=== PATIENT | female | born 1965 | race Asian ===

== ENCOUNTER 2019-02-05 22:52 | Emergency (ER) | payer BC ==
[~2019-02-05] VITALS: Ht 157.5 cm; Wt 113.4 kg
[~2019-02-05 22:52] MED LIST: ADIPEX-P37.5 M1 OR; BENICAR HCT1 TA1 PO; CIPRO500 MG OR; IBUP800T30 PO
[2019-02-05 23:09] VITALS: TEMP 98.8
[2019-02-05 23:52] LABS: PLATELET COUNT 224 K/uL (152-353)
[2019-02-06 00:07] LABS: POTASSIUM 3.8 mmol/L (3.6-5.2)
[2019-02-06 00:13] LABS: PARTIAL THROMBOPLASTIN TIME 23.7 SECONDS (24.5-33.6)
[2019-02-06 01:00] VITALS: BP 170/73
== END 2019-02-06 01:05 | disposition home or self-care (01) ==
LOC: ED 22:52
PROVIDERS: Hospitalist
DX: M17.12 Unilateral primary osteoarthritis, left knee (principal); M25.562 Pain in left knee
CPT/HCPCS: 36415; 80048; 85027; 85379; 85610; 85730; 96372; 99284; J1885; J2930

== ENCOUNTER 2019-02-12 10:07 | Outpatient (CLI) | payer BC | END 2019-02-12 22:53 | disposition home or self-care (01) | LOC: RAD 10:07 | DX: R60.0 Localized edema (principal); M25.562 Pain in left knee ==

== ENCOUNTER 2019-03-29 10:39 | Outpatient (CLI) | payer BC | END 2019-03-29 21:29 | disposition home or self-care (01) | LOC: RAD 10:39 | DX: M06.4 Inflammatory polyarthropathy (principal); M25.551 Pain in right hip; M25.552 Pain in left hip; M25.561 Pain in right knee; M25.562 Pain in left knee; M54.5 Low back pain ==

== ENCOUNTER 2020-06-17 09:56 | Outpatient (CLI) | payer BC ==
[2020-06-17 11:22] LABS: PLATELET COUNT 240 K/uL (152-353)
[2020-06-17 11:23] LABS: POTASSIUM 3.3 mmol/L (3.6-5.2)
== END 2020-06-17 21:40 | disposition home or self-care (01) ==
LOC: RAD 09:56
PROVIDERS: ATTEND Nurse Practitioner Family
DX: R05 Cough (principal); R42 Dizziness and giddiness; R53.83 Other fatigue; R52 Pain, unspecified
CPT/HCPCS: 36415; 80053; 81000; 85027; 87086; 87088; 93005

== ENCOUNTER 2021-02-16 19:01 | Emergency (ER) | payer BC ==
[~2021-02-16] VITALS: Ht 160 cm; Wt 124.7 kg
[2021-02-16 22:45] VITALS: BP 185/68; TEMP 98.5
== END 2021-02-16 22:47 | disposition home or self-care (01) ==
LOC: ED 19:01
DX: M54.42 Lumbago with sciatica, left side (principal)
CPT/HCPCS: 96372; 99282; 99283; J1100

== ENCOUNTER 2021-05-09 09:15 | Emergency (ER) | payer BC ==
[~2021-05-09] VITALS: Ht 160 cm; Wt 131.1 kg
[2021-05-09 09:30] VITALS: TEMP 97.2
[2021-05-09 13:27] VITALS: BP 154/89
== END 2021-05-09 13:27 | disposition home or self-care (01) ==
LOC: ED 09:15
DX: M25.561 Pain in right knee (principal); S16.1XXA Strain of muscle, fascia and tendon at neck level, initial encounter; S29.012A Strain of muscle and tendon of back wall of thorax, initial encounter; V49.50XA Passenger injured in collision with unspecified motor vehicles in traffic accident, initial encounter; Y92.89 Other specified places as the place of occurrence of the external cause
CPT/HCPCS: 99283

== ENCOUNTER 2021-10-19 14:39 | Outpatient (CLI) | payer BC | END 2021-10-19 19:00 | disposition home or self-care (01) | LOC: MAMMO 14:39 | PROVIDERS: ATTEND Nurse Practitioner Family | DX: I10 Essential (primary) hypertension (principal); E78.5 Hyperlipidemia, unspecified; D64.9 Anemia, unspecified; Z12.31 Encounter for screening mammogram for malignant neoplasm of breast ==

== ENCOUNTER 2022-09-28 10:25 | Day surgery (SDC) | payer OTHER | END 2022-09-28 13:38 | disposition home or self-care (01) | LOC: OR 10:25 | PROVIDERS: ATTEND Internal Medicine Gastroenterology | PROC: 0DJD8ZZ Inspection of Lower Intestinal Tract, Via Natural or Artificial Opening Endoscopic (ICD-10-PCS; principal; 2022-09-28) | DX: K64.8 Other hemorrhoids (principal); Z12.11 Encounter for screening for malignant neoplasm of colon | CPT/HCPCS: J2704; J7120 ==

== ENCOUNTER 2023-03-02 07:44 | Outpatient (CLI) | payer OTHER ==
[2023-03-02 08:16] LABS: PLATELET COUNT 271 K/uL (152-353)
[2023-03-02 08:41] LABS: POTASSIUM 3.6 mmol/L (3.6-5.2)
== END 2023-03-02 19:08 | disposition home or self-care (01) ==
LOC: LABW 07:44
PROVIDERS: ATTEND Nurse Practitioner Family
DX: I10 Essential (primary) hypertension (principal); R73.03 Prediabetes; E78.2 Mixed hyperlipidemia; E66.01 Morbid (severe) obesity due to excess calories
CPT/HCPCS: 36415; 80053; 80061; 82306; 82607; 83036; 84436; 84443; 84479; 85027